=== PATIENT | male | born 1955 | race Caucasian/White ===

== ENCOUNTER 2019-05-23 12:47 | Outpatient (CLI) | payer BC, SELFPAY ==
[2019-05-23 15:21] LABS: Complement C3 145 mg/dL (88-165)
[2019-05-23 15:24] LABS: CRP 0.5 mg/dL (<1.0)
[2019-05-23 15:30] LABS: Erythrocyte Sedimentation Rate 12 mm/hr (0-20)
[2019-05-23 16:07] LABS: Rheumatoid Factor < 8.6 IU/ML (<12)
[2019-05-25 11:19] LABS: Angiotensin Converting Enzyme 9 U/L (9-67)
[2019-05-26 02:34] LABS: Hex Phase Conf Chg Test Yes; Lupus dRVVT 1:1 Mix Interpreta Not Indicated; Lupus dRVVT Screen 40 sec (<=45); LupusdRVVT 1:1Mix Int Chg Test Yes; PTT-LA Screen 38 sec (<=40)
[2019-05-26 10:46] LABS: Anti Cyclic Citrullinated Pept <16 Units (<20)
[2019-05-28 18:57] LABS: SM Antibody <1.0; SM/RNP Antibody <1.0
[2019-05-28 19:07] LABS: SS-A <1.0; SS-B <1.0
== END 2019-05-23 12:48 | disposition home or self-care (01) ==
LOC: ANHLAB 12:50
PROVIDERS: PCP Family Medicine; Visit Provider Internal Medicine
DX: M19.90 Unspecified osteoarthritis, unspecified site (principal); R76.8 Other specified abnormal immunological findings in serum
CPT/HCPCS: 36415; 82164; 85598; 85613; 85652; 85730; 86140; 86160; 86200; 86225; 86235; 86430

== ENCOUNTER 2019-06-26 07:27 | Outpatient (CLI) | payer BC, SELFPAY ==
--- NOTE | ~2019-06-26 | CT_ITS ---
EXAMINATION: CT abdomen pelvis w con DATE: 06/26/2019 08:18 INDICATION: Malignant neoplasm of the ascending colon TECHNIQUE: Computed tomography (CT) of the abdomen and pelvis was performed with 100 mL Omnipaque-350 intravenous contrast. Automated exposure control and iterative reconstruction technique were employe d. The dose-length product was 620.20 mGy-cm. COMPARISON: 11/28/2018 and 09/12/2015 FINDINGS: Mild atelectasis/scarring at the bilateral lung bases. Couple unchanged 4 mm nodules in the left and right lower lobes are unchanged since 09/12/2015 consistent with old granulomatous disease. Heart size is normal. No pericardial or pleural effusion. Liver, gallbladder, spleen, pancreas, bilateral adren al glands and kidneys are normal. Postoperative change of prior right hemicolectomy with ileocolic an astomosis. Bowels are otherwise unremarkable. Small bilateral fat-containing inguinal hernias with ch jacqueline of likely hernia mesh repair on the left. Bladder is normal. No free intraperitoneal gas or flui d. No pathologically enlarged abdominal or pelvic lymphadenopathy. Mild lumbar dextrocurvature with m oderate spondylosis partially lumbarized S1 segment. IMPRESSION: 1. No evident recurrent or metastatic disease. Reviewed, dictated and finalized at location A. 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
== END 2019-06-26 07:28 | disposition home or self-care (01) ==
LOC: ANHIMG 07:30
PROVIDERS: PCP Family Medicine; Visit Provider Internal Medicine Hematology & Oncology
DX: C18.2 Malignant neoplasm of ascending colon (principal)
CPT/HCPCS: 74177; Q9967

== ENCOUNTER 2019-07-12 01:26 | Day surgery (SDC) | payer BC, SELFPAY ==
[2019-07-06 14:42] VITALS: BMI 27.1
[2019-07-12 06:14] VITALS: BP 133/87; PULSE 83; RESP 16; TEMP 36.3; O2SAT 98; BMI 26.2
[2019-07-12] MEDS: LACTATED RINGERS 1,000 ML 150 ML IV CONT (06:37)
--- NOTE | 2019-07-12 07:11 | P.PNAN_ITS ---
Anes - Initial Pre Proc Eval Procedure: Operation Date: 07/12/19 07:30 Proposed Procedures p Screening Colonoscopy - Shad Carrasquillo MD Date/Time: 07/12/19 07:11 Surgeon: Shad Carrasquillo MD Pre Op Diagnosis: Neoplasm Screening and Hx of Colon CA Patient Data Age: 63 Gender: M Height: 6 ft Weight: 87.6 kg Last Vital Signs Temp 97.4 F L 07/12/19 06:14 Pulse 83 07/12/19 06:14 Resp 16 07/12/19 06:14 BP 133/87 07/12/19 06:14 Pulse Ox 98 07/12/19 06:14 Allergies Allergy/AdvReac Type Severity Reaction Status Date / Time No Known Allergies Allergy Unverified 07/12/19 06:23 Home Medications Medication Instructions Recorded Confirmed Type ascorbate calcium (vitamin C) 500 500 mg PO DAILY 05/16/19 07/06/19 History mg tablet lisinopril 5 mg PO DAILY 07/06/19 07/06/19 History Patient hx anesthesia problems: none Family hx anesthesia problems: none COUNT INCLUDES THE [facility] Past Medical History Medical History (Updated 07/12/19 @ 07:11 by Easton Reece MD) Allergies JONATHAN positive Colon cancer had radiation and chemo Inflammatory arthritis Peripheral neuropathy Surgical History Surgical History H/O hernia repair History of colon surgery Social History Social History Smoking status: Never smoker Alcohol intake: never Anes - Eval Final PreProcedure Day of Procedure 07/12/19 07:11 Patient weight: normal Heart: regular rate and rhythm Lungs: clear to auscultation Airway: Mallampati scale class II Neurological: alert and oriented Last oral intake: >/= 8 hours ASA classification: III Emergent: no Anesthetic plan: proceed Anesthesia type and monitoring: general GIVS and standard monitoring Informed Consent: The patient's anesthetic plan and its attendant risks and benefits were discussed with the patient/family/POA. Questions were solicited and answers provided to the satisfaction of the patient/family/POA.
--- NOTE | 2019-07-12 07:34 | P.CONGI_ITS ---
Assessment and Plan Additional Plan This is a 63-year-old white male patient seen in evaluation at the request of Dr. Gee Arcos, also followed by Dr Weiss. Patient was found to have a cancer of the cecum requiring surgical resection 1 year ago. His current weight appetite bowel movements are normal. He denies abdominal pain. His bowel habits are normal. He has not lost weight. After surgical resection he did undergo chemotherapy and radiation therapy. Family history is significant his sister and brother both have had colon polyps. His son had kidney cancer resected age two current medications include lisinopril. No stated drug allergies. Physical exam reveals patient to be alert. Vital signs stable. HEENT exam unremarkable. Lungs are clear to auscultation and percussion. Heart is without murmur or extra sounds. Abdominal exam bowel sounds are present soft nontender with no hepatosplenomegaly. Digital external rectal exam is normal. Impression 1. Personal history of colon cancer. Status post right hemicolectomy. 2. Family history of colon polyps. Plan is for surveillance colonoscopy now and at intervals in the future. GI Consult Note Consult date/time: 07/12/19 07:34 HPI: Conor Olea is a 63 year old male [facility] Past Medical History Medical History (Updated 07/12/19 @ 07:11 by Easton Reece MD) Allergies JONATHAN positive Colon cancer had radiation and chemo Inflammatory arthritis Peripheral neuropathy Surgical History Surgical History H/O hernia repair History of colon surgery Social History Social History Smoking status: Never smoker Alcohol intake: never Meds Home Medications and Allergies Home Medications Medication Instructions Recorded Confirmed Type ascorbate calcium (vitamin C) 500 500 mg PO DAILY 05/16/19 07/06/19 History mg tablet lisinopril 5 mg PO DAILY 07/06/19 07/06/19 History Allergies Allergy/AdvReac Type Severity Reaction Status Date / Time No Known Allergies Allergy Unverified 07/12/19 06:23 Vital Signs Vital Signs - 24 hr 07/12/19 06:14 Temperature 36.3 C L Pulse Rate 83 Respiratory Rate 16 Blood Pressure 133/87 Pulse Oximetry 98
[2019-07-12 07:52] VITALS: BP 119/72; PULSE 84; RESP 17; O2SAT 98
[2019-07-12 08:02] VITALS: BP 123/81; PULSE 71; RESP 17; O2SAT 95
[2019-07-12 08:12] VITALS: BP 141/100; PULSE 71; RESP 17; O2SAT 97
== END 2019-07-12 08:45 | disposition home or self-care (01) ==
PROVIDERS: PCP Family Medicine; Visit Provider Internal Medicine Gastroenterology
PROC: 0DJD8ZZ Inspection of Lower Intestinal Tract, Via Natural or Artificial Opening Endoscopic (ICD-10-PCS; CPT 45378; principal; 2019-07-12 07:30)
DX: Z12.11 Encounter for screening for malignant neoplasm of colon (principal); K64.8 Other hemorrhoids; Z85.038 Personal history of other malignant neoplasm of large intestine; Z90.49 Acquired absence of other specified parts of digestive tract; Z83.71 Family history of colonic polyps; Z92.21 Personal history of antineoplastic chemotherapy; Z92.3 Personal history of irradiation; G62.9 Polyneuropathy, unspecified
CPT/HCPCS: G0105; J2704; J7120

== ENCOUNTER 2020-02-01 08:22 | Outpatient (CLI) | payer BC, SELFPAY ==
--- NOTE | 2020-02-01 08:24 | ECG_ITS ---
Measurements Intervals [place] Rate: 86 P: 60 AL: 195 QRS: -26 QRSD: 111 T: 39 QT: 349 QTc: 420 Interpretive Statements SINUS RHYTHM INTRAVENTRICULAR CONDUCTION DELAY BORDERLINE R WAVE PROGRESSION, ANTERIOR LEADS BORDERLINE T WAVE ABNORMALITY- LATERAL LEADS BASELINE ARTIFACT- I, II, III, AVR, AVL, AVF BORDERLINE ECG Electronically Signed On 02-01-2020 9:11:15 CDT by Mihir Han D.O.
== END 2020-02-01 08:23 | disposition home or self-care (01) ==
LOC: ANHSURGERY 08:24
PROVIDERS: PCP Family Medicine; Visit Provider Surgery
DX: Z01.818 Encounter for other preprocedural examination (principal); I10 Essential (primary) hypertension; I45.9 Conduction disorder, unspecified; R94.31 Abnormal electrocardiogram [ECG] [EKG]
CPT/HCPCS: 93005

== ENCOUNTER 2020-02-06 00:18 | Outpatient (CLI) | payer BC, SELFPAY ==
[2020-02-06 19:01] LABS: SARS-CoV-2 RNA PCR Negative
== END 2020-02-06 00:19 | disposition home or self-care (01) ==
LOC: ANHCOVIDDT 00:18
PROVIDERS: PCP Family Medicine; Visit Provider Surgery
DX: Z01.812 Encounter for preprocedural laboratory examination (principal); Z20.828 Contact with and (suspected) exposure to other viral communicable diseases
CPT/HCPCS: 87635; C9803; U0003

== ENCOUNTER 2020-02-08 01:03 | Day surgery (SDC) | payer BC, SELFPAY ==
[2020-01-31 09:24] VITALS: BMI 25.7
[2020-02-08 08:30] VITALS: BMI 24.3
[2020-02-08 08:56] VITALS: BP 154/86; PULSE 84; RESP 20; TEMP 36.5; O2SAT 98
[2020-02-08] MEDS: LACTATED RINGERS 1,000 ML 30 ML IV CONT (09:19)
--- NOTE | 2020-02-08 09:54 | PM.IMHP ---
H&P: HPI History of Present Illness Date/Time: 02/08/20 09:54 Chief complaint: Colon Cancer Narrative: Conor Olea is a 64 year old male presenting for RIJ VAD removal. Pt had port place in 05/14 for metastatic colon cancer. Pt has completed chemotx at this time and recent f/u c oncology clears him for VAD removal. Pt reports he has been regularly having port flushed and has not noted any issues. Review of Systems Constitutional: Constitutional: Denies anorexia, Denies chills, Denies fatigue, Denies headache(s), Denies malaise, Denies poor appetite, Denies weight gain and Denies weight loss Eyes: Eyes: Reports no additional eye complaints and Denies change in vision ENT: Denies headache(s), Denies hearing loss and Denies sore throat Cardiovascular: Cardiovascular: Reports no additional cardiovascular complaints, Denies chest pain, Denies palpitations and Denies dyspnea Respiratory: Respiratory: Reports no additional respiratory complaints, Denies cough and Denies dyspnea Gastrointestinal: Gastrointestinal: Reports no additional gastrointestinal complaints, Denies abdominal pain, Denies change in stool character, Denies constipation, Denies diarrhea, Denies nausea and Denies vomiting Genitourinary: Genitourinary: Reports no additional male genitourinary complaints, Denies dysuria, Denies urinary frequency and Denies urinary urgency Musculoskeletal: Musculoskeletal: Reports no additional musculoskeletal complaints Integumentary/Breasts: Skin/Breast: Reports system reviewed and no additional complaints, except as docu, Denies pruritus, Denies lesions and Denies wounds Neurologic: Reports system reviewed and no additional complaints, except as documented, Denies confusion and Denies headache(s) Psychiatric: Psychiatric: Reports no additional psychiatric complaints and Denies confusion Endocrine: Endocrine: Reports no additional endocrine complaints, Denies fatigue and Denies palpitations Hematologic/Lymphatic: Hematologic/Lymphatic: Reports no additional hematologic/lymphatic complaints Allergic/Immunologic: Allergic/Immunologic: Reports no additional allergic/immunologic complaints PMFSH Past Medical History Medical History Allergies JONATHAN positive Colon cancer had radiation and chemo Inflammatory arthritis Lupus (systemic lupus erythematosus) Neuropathy due to chemotherapeutic drug Peripheral neuropathy Seasonal allergic rhinitis Surgical History Surgical History H/O hernia repair History of colon surgery Family History Family History Sibling Family history of premature coronary heart disease Father Cerebrovascular accident Other Family history of malignant neoplasm of kidney Social History Social History Smoking status: Never smoker Alcohol intake: never Spiritual care concerns: No Meds Home Medications and Allergies Home Medications Medication Instructions Recorded Confirmed Type ascorbate calcium (vitamin C) 500 500 mg PO DAILY 05/16/19 02/08/20 History mg tablet lisinopril 10 mg tablet 10 mg PO DAILY #30 tablet 12/11/19 02/08/20 Rx hydrochlorothiazide 12.5 mg tablet 12.5 mg PO DAILY #30 tablet 01/12/20 02/08/20 Rx duloxetine [Cymbalta] 60 mg PO HS 01/31/20 02/08/20 History Allergies Allergy/AdvReac Type Severity Reaction Status Date / Time No Known Allergies Allergy Verified 02/08/20 09:08 Vital Signs Vital Signs - 24 hr 02/08/20 08:56 Temperature 36.5 C Pulse Rate 84 Respiratory Rate 20 Blood Pressure 154/86 H Pulse Oximetry 98 Exam Const: General: cooperative, comfortable, no acute distress and well developed Nutritional Appearance: average body habitus Orientation/consciousness: patient oriented x3 and No confusion HENMT: Head: normal to
--- NOTE | 2020-02-08 10:01 | WPDHPUPDATE1 ---
History and Physical Update Update Date/Time: 02/08/20 10:01 History and Physical has been reviewed, including an updated exam of the patient. There are NO changes in the patient's condition. Risks, benefits, and alternatives have been discussed and questions answered. Patient agrees to proceed with procedure.
--- NOTE | 2020-02-08 10:41 | WPDANESEPPF ---
Anes - Initial Pre Proc Eval Procedure: Operation Date: 02/08/20 10:00 Proposed Procedures p Removal Maura Cath - Clementine Weir MD Date/Time: 02/08/20 10:41 Surgeon: Clementine Weir MD Pre Op Diagnosis: Colon Cancer Patient Data Age: 64 Gender: M Height: 6 ft Weight: 81.3 kg Last Vital Signs Temp 97.7 F 02/08/20 08:56 Pulse 84 02/08/20 08:56 Resp 20 02/08/20 08:56 BP 154/86 H 02/08/20 08:56 Pulse Ox 98 02/08/20 08:56 Allergies Allergy/AdvReac Type Severity Reaction Status Date / Time No Known Allergies Allergy Verified 02/08/20 09:08 Home Medications Medication Instructions Recorded Confirmed Type ascorbate calcium (vitamin C) 500 500 mg PO DAILY 05/16/19 02/08/20 History mg tablet lisinopril 10 mg tablet 10 mg PO DAILY #30 tablet 12/11/19 02/08/20 Rx hydrochlorothiazide 12.5 mg tablet 12.5 mg PO DAILY #30 tablet 01/12/20 02/08/20 Rx duloxetine [Cymbalta] 60 mg PO HS 01/31/20 02/08/20 History Patient hx anesthesia problems: none Family hx anesthesia problems: none PMFSH Past Medical History Medical History (Updated 02/08/20 @ 09:58 by Clementine Weir MD) Allergies JONATHAN positive Colon cancer had radiation and chemo Inflammatory arthritis Lupus (systemic lupus erythematosus) Neuropathy due to chemotherapeutic drug Peripheral neuropathy Seasonal allergic rhinitis Surgical History Surgical History H/O hernia repair History of colon surgery Family History Family History Sibling Family history of premature coronary heart disease Father Cerebrovascular accident Other Family history of malignant neoplasm of kidney Social History Social History Smoking status: Never smoker Alcohol intake: never Spiritual care concerns: No Anes - Eval Final PreProcedure Day of Procedure 02/08/20 10:41 Patient weight: normal Heart: regular rate and rhythm Lungs: clear to auscultation Airway: Mallampati scale class II Neurological: alert and oriented ASA classification: III Emergent: no Anesthetic plan: proceed Anesthesia type and monitoring: general GIVS and standard monitoring Informed Consent: The patient's anesthetic plan and its attendant risks and benefits were discussed with the patient/family/POA. Questions were solicited and answers provided to the satisfaction of the patient/family/POA.
[2020-02-08] MEDS: ceFAZolin 2 GM/D5W 50 ML 2 GM/50 ML BAG IVPB (11:20)
--- NOTE | 2020-02-08 11:27 | SUR.PREOP ---
1100; PT AWARE DR BECERRA IS ABOUT AN HOUR BEHIND SCHEDULE
[2020-02-08] MEDS: BUPIVACAINE/EPINEPHRINE 0.5% 10 ML VIAL INFILTRATE (11:35)
[2020-02-08 11:55] VITALS: BP 144/77; PULSE 90; RESP 14; O2SAT 100
--- NOTE | 2020-02-08 12:04 | P.OP_ITS ---
Procedure Note - Detailed Date of procedure: 02/08/20 Pre-op diagnosis: Colon Cancer Post-op diagnosis: same Procedure performed: Removal right chest venous access device Description of procedure: The patient was taken to the operating room placed in the supine position. After adequate induction of MAC anesthesia, the patient was prepped and draped in the normal sterile fashion. A time-out was then done to verify the patient's identity, as well as the procedure being performed. I began by localizing the previous incision line in the right chest and around the port itself. Once this was done, I made an incision through the old incision to the level of the port. I then bluntly dissected around the port, and located the 2 sutures holding the port in place. I then cut the 2 sutures and removed the port from the pocket. I was then able to remove the port and catheter in full. The catheter was noted in the right internal jugular vein. I then held pressure at the level of the right internal jugular vein for approximately 5 mi nutes. Hemostasis was noted after pressure was held. I then localized the pocket further and closed the subcutaneous tissue with 3 0 Vicryl suture. I then closed the skin with 4 O Monocryl subcuticular suture. Dermabond was then placed on the wound. The patient tolerated the procedure well, was alert and awake in the operating room postoperatively, and will be transferred to the recovery in stable condition. Implants: none Anesthesia: MAC and local Surgeon: Clementine Weir MD Estimated blood loss (mL): 5 Drains: No Packing: No Pathology: none sent Complications: No immediate complications Condition: stable Disposition: PACU Findings: right-sided VAD
[2020-02-08 12:25] VITALS: BP 151/80; PULSE 83; RESP 16; O2SAT 96
[2020-02-08 12:55] VITALS: BP 165/98; PULSE 78; RESP 16
== END 2020-02-08 13:05 | disposition home or self-care (01) ==
PROVIDERS: PCP Family Medicine; Visit Provider Surgery
PROC: (CPT 36589; principal; 2020-02-08 10:00)
DX: Z45.2 Encounter for adjustment and management of vascular access device (principal); Z85.038 Personal history of other malignant neoplasm of large intestine; Z92.21 Personal history of antineoplastic chemotherapy; Z92.3 Personal history of irradiation; M32.9 Systemic lupus erythematosus, unspecified; G62.9 Polyneuropathy, unspecified
CPT/HCPCS: 36590; J0690; J2250; J3010; J7120

== ENCOUNTER 2020-05-24 09:17 | Outpatient (CLI) | payer BC, SELFPAY ==
--- NOTE | ~2020-05-24 | CT_ITS ---
EXAMINATION: CT abdomen pelvis w con DATE: 05/24/2020 09:51 INDICATION: Malignant neoplasm of the ascending colon TECHNIQUE: Computed tomography (CT) of the abdomen and pelvis was performed with 100 mL Omnipaque-350 intravenous contrast. Automated exposure control and iterative reconstruction technique were employe d. The dose-length product was 525.84 mGy-cm. COMPARISON: 06/26/2019 FINDINGS: Mild bibasilar atelectasis. Heart size is normal. No pericardial or pleural effusion. Small sliding-t ype hiatal hernia. Liver, gallbladder, spleen, pancreas, right kidney and bilateral adrenal glands ar e normal. There are 4 nonobstructing stones at the left kidney the largest at the lower pole measurin g approximately 2-3 mm. Bladder is normal. Small bilateral fat-containing inguinal hernias with batres e of prior left inguinal hernia repair. Postoperative change of prior right hemicolectomy with ileoco lic anastomosis in the right abdomen. No bowel obstruction. No free intraperitoneal gas or fluid. No pathologically enlarged abdominal or pelvic lymphadenopathy. Mild lumbar dextroscoliosis. Mild to mod erate lumbar and lower thoracic spondylosis. No suspicious lytic or blastic bone lesions. IMPRESSION: 1. Change of prior right hemicolectomy with ileocolic anastomosis for reported malignant neoplasm of the ascending colon. No evident recurrent or metastatic disease. 2. Small sliding-type hiatal hernia. 3. Small bilateral fat-containing inguinal hernias with change of prior left inguinal hernia repair. Reviewed, dictated and finalized at location B. 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 Change of prior right hemicolectomy with ileocolic anastomosis for reported malignant neoplasm of the ascending colon. No evident recurrent or metastatic disease. 2. Small sliding-type hiatal hernia. 3. Small bilateral fat-containing inguinal hernias with change of prior left in guinal hernia repair.
== END 2020-05-24 09:18 | disposition home or self-care (01) ==
PROVIDERS: PCP Family Medicine; Visit Provider Internal Medicine Hematology & Oncology
DX: C18.2 Malignant neoplasm of ascending colon (principal); Z90.49 Acquired absence of other specified parts of digestive tract; K44.9 Diaphragmatic hernia without obstruction or gangrene; K40.20 Bilateral inguinal hernia, without obstruction or gangrene, not specified as recurrent
CPT/HCPCS: 74177; Q9967

== ENCOUNTER 2021-05-08 08:06 | Outpatient (CLI) | payer MEDICARE, SELFPAY ==
--- NOTE | ~2021-05-08 | CT_ITS ---
EXAMINATION: CT abdomen pelvis w con DATE: 05/08/2021 08:37 INDICATION: Malignant neoplasm of ascending colon. TECHNIQUE: Computed tomography (CT) of the abdomen and pelvis was performed with 100 mL Omnipaque 350 intravenous contrast. Automated exposure control and iterative reconstruction technique were employe d. The dose-length product was 627.86 mGy-cm. COMPARISON: CT abdomen and pelvis 05/24/2020 FINDINGS: The visualized portions of the lung bases demonstrate mild atelectasis. No pleural effusion . The heart size is normal. No pericardial effusion. The liver, gallbladder, spleen, pancreas, adrena l glands, and right kidney are normal. There are two 1 mm stones in left kidney. There is a right ing uinal hernia containing fat. There are changes of left inguinal hernia repair. There is prominent fat in left inguinal canal that may be the normal postoperative appearance or a recurrent hernia. There are changes of right hemicolectomy. There are no pathologically enlarged lymph nodes. There is no chavo e intraperitoneal fluid. There is severe lumbar spondylosis. There is mild chronic anterior wedging o f lower thoracic vertebral bodies. IMPRESSION: 1. No evidence of metastatic disease. Reviewed, dictated and finalized at location B. 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
[2021-05-08 08:31] LABS: Estimated Glomerular Filt Rate > 60
== END 2021-05-08 08:07 | disposition home or self-care (01) ==
PROVIDERS: PCP Family Medicine; Visit Provider Internal Medicine Hematology & Oncology
DX: C18.2 Malignant neoplasm of ascending colon (principal)
CPT/HCPCS: 74177; Q9967

== ENCOUNTER 2021-09-02 11:48 | Outpatient (CLI) | payer MEDICARE, SELFPAY ==
[2021-09-02 15:12] LABS: Prostate Specific Antigen 1.4 ng/mL (< OR = 4.0)
[2021-09-02 15:39] LABS: MALB Creatinine Ratio 12.5 mg/g (0-30); Microalbumin Urine Random 37.5 mg/L (0-16.7)
== END 2021-09-02 11:49 | disposition home or self-care (01) ==
LOC: ANHLAB 11:49
PROVIDERS: PCP Family Medicine; Visit Provider Family Medicine
DX: Z12.5 Encounter for screening for malignant neoplasm of prostate (principal); E11.9 Type 2 diabetes mellitus without complications
CPT/HCPCS: 36415; 82043; 84153; G0103

== ENCOUNTER 2022-05-26 06:38 | Outpatient (CLI) | payer MEDICARE, SELFPAY ==
--- NOTE | ~2022-05-26 | CT_ITS ---
EXAMINATION: CT abdomen pelvis w con INDICATION: Malignant neoplasm of the ascending colon TECHNIQUE: Computed tomographic images of the abdomen and pelvis were obtained after the administrati on of 100 cc of Omnipaque 350 intravenous contrast. The dose-length product (DLP) was 492.05 mGy-cm. Automated exposure control and iterative reconstruction technique were employed. COMPARISON: 05/08/2021 FINDINGS: Minimal dependent atelectasis is present in the lung bases. The heart size is normal. The l iver, spleen, pancreas, gallbladder, and adrenal glands are normal. The kidneys are unremarkable. No pathologically enlarged abdominal or pelvic lymph nodes are identified. There is no free intraperiton eal gas or evidence of bowel obstruction. Colonic diverticulosis is present without evidence of diver ticulitis. There are changes of right hemicolectomy. There is a right inguinal hernia containing fat. There is severe lower lumbar spondylosis. IMPRESSION: 1. Changes of right hemicolectomy without evidence of recurrent or metastatic disease. Reviewed, dictated and finalized at location L. FOLDER IMPRESSION: 1. Changes of right hemicolectomy without evidence of recurrent or metastatic d isease.
== END 2022-05-26 06:39 | disposition home or self-care (01) ==
PROVIDERS: PCP Family Medicine; Visit Provider Internal Medicine Hematology & Oncology
DX: C18.2 Malignant neoplasm of ascending colon (principal)
CPT/HCPCS: 74177; Q9967

== ENCOUNTER 2022-06-15 09:23 | Day surgery (SDC) | payer MEDICARE, SELFPAY ==
[2022-05-28 09:56] VITALS: BMI 26.3
[2022-06-02 12:09] VITALS: BMI 25.7
--- NOTE | 2022-06-15 07:09 | P.PNAN_ITS ---
Anes - Initial Pre Proc Eval Procedure: Operation Date: 06/15/22 11:30 Proposed Procedures p Diagnostic Colonoscopy - Shad Carrasquillo MD Date/Time: 06/15/22 07:09 Surgeon: Shad Carrasquillo MD Pre Op Diagnosis: History of Colon Cancer Patient Data Age: 66 Gender: M Height: 1.83 m Weight: 86 kg Allergies Allergy/AdvReac Type Severity Reaction Status Date / Time No Known Allergies Allergy Verified 06/02/22 12:08 Home Medications Medication Instructions Recorded Confirmed Type amlodipine 5 mg tablet 5 mg PO DAILY #90 tabs 03/09/22 06/15/22 Rx lisinopril 10 mg tablet 10 mg PO DAILY #90 tabs 05/05/22 06/15/22 Rx metformin 500 mg tablet,extended 1,000 mg PO DAILY #180 tabs 05/05/22 06/15/22 Rx release 24 hr sodium,potassium,mag sulfates 17.5 See Rx Instructions PO .COMPLEX 05/28/22 06/15/22 Rx gram-3.13 gram-1.6 gram oral soln #354 mL (Suprep Bowel Prep Kit) Patient hx anesthesia problems: none Family hx anesthesia problems: none Results Review: All pre-operative results and documents have been reviewed as part of the pre- operative evaluation. [facility] Past Medical History Medical History (Updated 06/15/22 @ 07:11 by Humble Campos DO) Allergies JONATHAN positive BMI 25.0-25.9,adult BMI 26.0-26.9,adult Colon cancer had radiation and chemo Essential (primary) hypertension Inflammatory arthritis Lupus (systemic lupus erythematosus) Neuropathy due to chemotherapeutic drug Peripheral neuropathy Seasonal allergic rhinitis Uncontrolled type 2 diabetes mellitus with hyperglycemia Surgical History Surgical History H/O hernia repair History of colon surgery Family History Family History Sibling Family history of premature coronary heart disease Father Cerebrovascular accident Mother No problems noted. Other Family history of malignant neoplasm of kidney Social History Social History Smoking status: Never smoker Alcohol intake: current Substance use: never Substance use type: does not use Living arrangements: alone Gender identity (if verbalized by the patient): Male Spiritual care concerns: No Anes - Eval Final PreProcedure Day of Procedure 06/15/22 07:09 Patient weight: overweight Heart: regular rate and rhythm Lungs: clear to auscultation Airway: Mallampati scale class II Neurological: alert and oriented Last oral intake: >/= 8 hours ASA classification: III Emergent: no Anesthetic plan: proceed Anesthesia type and monitoring: general GIVS and standard monitoring Results Review: All pre-operative results and documents have been reviewed as part of the pre- operative evaluation. Informed Consent: The patient's anesthetic plan and its attendant risks and benefits were discussed with the patient/family/POA. Questions were solicited and answers provided to the satisfaction of the patient/family/POA.
[2022-06-15 10:00] VITALS: BP 130/81; PULSE 98; RESP 20; TEMP 36.9; O2SAT 99
[2022-06-15] MEDS: LACTATED RINGERS 1,000 ML 150 ML IV CONT (10:19)
[2022-06-15 10:21] LABS: Glucose Point of Care 201 mg/dl (65-105)
--- NOTE | 2022-06-15 10:35 | PM.HPGS ---
History of Present Illness History of Present Illness Consent: Risks, benefits, and alternatives have been discussed and questions answered. Patient agrees to proceed with procedure. Chief complaint: History of Colon Cancer Narrative: Conor Olea is a 66 year old male Presents for surveillance colonoscopy. Patient's current weight appetite and bowel movements are normal. He denies abdominal pain. He has had no bleeding. Patient has a history of colon cancer resected 2018. By Dr. Shook. Patient states he has done well since that time. He returns today for surveillance colonoscopy. Previous colonoscopies were performed by Dr. Paz. Review of Systems Review of Systems: Review of systems noncontributory. [facility] Past Medical History Medical History (Updated 06/15/22 @ 07:11 by Humble Campos DO) Allergies JONATHAN positive BMI 25.0-25.9,adult BMI 26.0-26.9,adult Colon cancer had radiation and chemo Essential (primary) hypertension Inflammatory arthritis Lupus (systemic lupus erythematosus) Neuropathy due to chemotherapeutic drug Peripheral neuropathy Seasonal allergic rhinitis Uncontrolled type 2 diabetes mellitus with hyperglycemia Surgical History Surgical History H/O hernia repair History of colon surgery Family History Family History Sibling Family history of premature coronary heart disease Father Cerebrovascular accident Mother No problems noted. Other Family history of malignant neoplasm of kidney Social History Social History Smoking status: Never smoker Alcohol intake: current Substance use: never Substance use type: does not use Living arrangements: alone Gender identity (if verbalized by the patient): Male Spiritual care concerns: No Meds Home Medications and Allergies Home Medications Medication Instructions Recorded Confirmed Type amlodipine 5 mg tablet 5 mg PO DAILY #90 tabs 03/09/22 06/15/22 Rx lisinopril 10 mg tablet 10 mg PO DAILY #90 tabs 05/05/22 06/15/22 Rx metformin 500 mg tablet,extended 1,000 mg PO DAILY #180 tabs 05/05/22 06/15/22 Rx release 24 hr sodium,potassium,mag sulfates 17.5 See Rx Instructions PO .COMPLEX 05/28/22 06/15/22 Rx gram-3.13 gram-1.6 gram oral soln #354 mL (Suprep Bowel Prep Kit) Allergies Allergy/AdvReac Type Severity Reaction Status Date / Time No Known Allergies Allergy Verified 06/02/22 12:08 Vital Signs Vital Signs - 24 hr 06/15/22 10:00 Temperature 98.5 F Pulse Rate 98 Respiratory Rate 20 Blood Pressure 130/81 Pulse Oximetry 99 Oxygen Delivery Room Air Exam Narrative: Physical exam reveals patient to be alert. Vital signs stable. HEENT exam is unremarkable. Patient is anicteric. Lungs are clear to auscultation and percussion. Heart is without murmur or extra sounds. Abdomen bowel sounds present soft nontender with no organomegaly. Digital external rectal exam is normal per Assessment and Plan Assessment and plan (1) Colon cancer: Code(s): C18.9 - Malignant neoplasm of colon, unspecified Status: Acute Assessment and Plan: patient has a history of colon cancer resected 2018. Patient underwent radiation therapy and chemotherapy. Stage of colon cancer is uncertain at this time. Further recommendations may be given after surveillance endoscopy. Follow-up typically at 3 year intervals is advised.
[2022-06-15] MEDS: SIMETHICONE ORAL SUSPENSION 20 MG/0.3 ML 30 ML BOTTLE 0.6 ML IRRIGATION (11:22)
[2022-06-15 11:30] VITALS: BP 92/59; PULSE 75; RESP 16; O2SAT 92
[2022-06-15 11:40] VITALS: BP 94/70; PULSE 78; RESP 18; O2SAT 98
[2022-06-15 11:50] VITALS: BP 123/81; PULSE 69; RESP 18; O2SAT 96
--- NOTE | 2022-06-15 11:58 | SUR.PHASEII ---
PT AWAKE AND ALERT. DENIES PAIN. DRINKING WATER. STATES READY TO GO HOME.
--- NOTE | 2022-06-15 12:44 | WPDANESPN ---
Anes - Prog Note Post-Op Date/Time: 06/15/22 12:44 Cardiovascular status: normal Respiratory status: normal Airway patency: baseline Mental status: baseline Post-Op hydration status: normal Vital Signs: Last Vital Signs Temp 36.9 C 06/15/22 10:00 Pulse 69 06/15/22 11:50 Resp 18 06/15/22 11:50 BP 123/81 06/15/22 11:50 Pulse Ox 96 06/15/22 11:50 O2 Del Method Room Air 06/15/22 11:50 Pain Score (VAS): 0 I/O: Intake & Output 06/14/22 06/15/22 06/15/22 23:59 07:59 15:59 Intake Total 400 Balance 400 06/15/22 10:17 POC Capillary Glucose 201 H Post-procedural complaints: none Patient Feedback: Patient satisfied with anesthetic care. Other Findings: Patient vital signs back to baseline. Patient denies nausea and vomiting. Patient's pain under control. Patient OK for discharge.
== END 2022-06-15 12:15 | disposition home or self-care (01) ==
PROVIDERS: PCP Family Medicine; Visit Provider Internal Medicine Gastroenterology
PROC: 0DJD8ZZ Inspection of Lower Intestinal Tract, Via Natural or Artificial Opening Endoscopic (ICD-10-PCS; CPT 45378; principal; 2022-06-15 11:30)
DX: Z85.038 Personal history of other malignant neoplasm of large intestine (principal)
CPT/HCPCS: 45378

== ENCOUNTER 2022-11-09 09:36 | Outpatient (CLI) | payer MEDICARE, SELFPAY ==
[2022-11-09 09:49] LABS: Hemoglobin 14.3 g/dL (14.0-18.0); Mean Corpuscular HGB Conc 33.3 g/dl (32-36); Mean Corpuscular Hemoglobin 28.8 pg (26-34); Mean Corpuscular Volume 86.7 fl (80-100); Mean Platelet Volume 8.7 fl (7.4-10.4); Platelet Count Result 293 k/mm3 (150-375); Red Blood Count 4.96 M/mm3 (4.6-6.20); Red Cell Distribution Width 12.6 % (11.5-14.5); White Blood Count 6.7 K/mm3 (4.5-10.0)
[2022-11-09 12:29] LABS: Microalbumin Urine Random 57.2 mg/L (0-16.7)
[2022-11-09 12:32] LABS: Anion Gap 5 mmol/L (8-16); Bilirubin,Total 0.7 mg/dL (0.2-1.3); Blood Urea Nitrogen 17 mg/dL (9-20); Calcium 9.2 mg/dL (8.4-10.2); Carbon Dioxide 28 mmol/L (22-30); Chloride 103 mmol/L (98-107); Estimated Glomerular Filt Rate > 60; Glucose 165 mg/dL (65-110); Potassium 4.1 mmol/L (3.4-5.0); Sodium 136 mmol/L (137-145)
[2022-11-09 12:33] LABS: Alanine Aminotransferase 25 U/L (6-50); Albumin Level 4.5 g/dL (3.5-5.1); Alkaline Phosphatase 81 U/L (38-126); Aspartate Amino Transferase 27 U/L (17-59); Cholesterol 218 mg/dL (0-200); HDL Direct 39 mg/dL; Triglycerides 120 mg/dL (<150)
[2022-11-09 12:39] LABS: Free T4 Free Thyroxine 1.03 ng/mL (0.78-2.19)
[2022-11-09 12:42] LABS: Creatinine Urine 392.3 mg/dL; MALB Creatinine Ratio 14.6 mg/g (0-30)
[2022-11-09 12:44] LABS: LDL Cholesterol Direct 137 mg/dL
[2022-11-09 12:50] LABS: Erythrocyte Sedimentation Rate 14 mm/hr (0-20)
== END 2022-11-09 09:37 | disposition home or self-care (01) ==
LOC: ANHLAB 09:38
PROVIDERS: PCP Family Medicine; Visit Provider Family Medicine
DX: M19.90 Unspecified osteoarthritis, unspecified site (principal); I10 Essential (primary) hypertension; E03.9 Hypothyroidism, unspecified; E11.65 Type 2 diabetes mellitus with hyperglycemia; G62.0 Drug-induced polyneuropathy; T45.1X5A Adverse effect of antineoplastic and immunosuppressive drugs, initial encounter; Z13.220 Encounter for screening for lipoid disorders; Z12.5 Encounter for screening for malignant neoplasm of prostate
CPT/HCPCS: 36415; 80048; 80061; 80076; 82043; 82607; 83036; 84153; 84439; 84443; 85027; 85652; G0103

== ENCOUNTER 2023-05-21 15:35 | Outpatient (CLI) | payer MEDICARE, SELFPAY ==
[2023-05-21 15:50] LABS: Basophils Percent Auto 0.5 % (0.2-1.2); Eosinophils Absolute Auto 0.3 K/mm3 (0-0.3); Eosinophils Percent Auto 3.7 % (0-4.4); Hematocrit 42.9 % (42.0-52.0); Hemoglobin 14.5 g/dL (14.0-18.0); Immature Granulocyte Absolute 0.03 K/mm3 (0.00-0.031); Immature Granulocyte Percent A 0.4 % (0-0.5); Lymphocytes Absolute Auto 2.33 K/mm3 (0.9-3.2); Lymphocytes Percent Auto 27.2 % (18.3-44.2); Mean Corpuscular HGB Conc 33.8 g/dl (32-36); Mean Corpuscular Hemoglobin 29.1 pg (26-34); Mean Platelet Volume 8.7 fl (7.4-10.4); Monocytes Absolute Auto 0.5 K/mm3 (0.1-0.6); Monocytes Percent Auto 6.3 % (2.6-8.5); Neutrophils Absolute Auto 5.3 K/mm3 (1.3-6.7); Neutrophils Percent Auto 61.9 % (45.5-73.1); Platelet Count Result 301 k/mm3 (150-375); Red Blood Count 4.99 M/mm3 (4.6-6.20); Red Cell Distribution Width 12.7 % (11.5-14.5); White Blood Count 8.6 K/mm3 (4.5-10.0)
[2023-05-21 16:32] LABS: Alanine Aminotransferase 38 U/L (6-50); Albumin Level 4.3 g/dL (3.5-5.1); Alkaline Phosphatase 92 U/L (38-126); Anion Gap 9 mmol/L (8-16); Aspartate Amino Transferase 33 U/L (17-59); Bilirubin,Total 0.4 mg/dL (0.2-1.3); Blood Urea Nitrogen 14 mg/dL (9-20); Calcium 9.8 mg/dL (8.4-10.2); Carbon Dioxide 30 mmol/L (22-30); Chloride 99 mmol/L (98-107); Estimated Glomerular Filt Rate 60; Glucose 177 mg/dL (65-110); Potassium 4.1 mmol/L (3.4-5.0); Sodium 138 mmol/L (137-145)
[2023-05-21 17:05] LABS: Carcinoembryonic Antigen 1.1 ng/mL (0.0-3.0)
== END 2023-05-21 15:36 | disposition home or self-care (01) ==
PROVIDERS: PCP Family Medicine; Visit Provider Internal Medicine Hematology & Oncology
DX: C18.2 Malignant neoplasm of ascending colon (principal)
CPT/HCPCS: 36415; 80053; 82378; 85025

== ENCOUNTER 2023-05-31 06:39 | Outpatient (CLI) | payer MEDICARE, SELFPAY ==
--- NOTE | ~2023-05-31 | CT_ITS ---
EXAMINATION: CT abdomen pelvis w con DATE: 05/31/2023 07:30 INDICATION: Malignant neoplasm of the ascending colon TECHNIQUE: Computed tomography (CT) of the abdomen and pelvis was performed with 100 mL Omnipaque-350 intravenous contrast. Automated exposure control and iterative reconstruction technique were employe d. The dose-length product was 491.18 mGy-cm. COMPARISON: 05/26/2022 and 05/24/2020 FINDINGS: Chronic 5 mm likely noncalcified granuloma at the anterobasilar left lower lobe. Heart size is normal . No pericardial or pleural effusion. Small sliding-type hiatal hernia. Liver, gallbladder, spleen, p ancreas, bilateral adrenal glands and right kidney are normal. There are couple T2-3 millimeter stone s at a lower pole calyx of the left kidney. Postoperative change of prior right hemicolectomy with il eocolic anastomosis in the right abdomen. No dilated bowel to suggest obstruction. Tiny fat-containin g umbilical hernia. There are small bilateral fat-containing inguinal hernias with change of a prior left inguinal hernia repair. Bladder is normal. No free intraperitoneal gas or fluid. No pathological ly enlarged abdominal or pelvic lymphadenopathy. Mild S-shaped scoliosis of the lumbar and lower thor acic spine with moderate spondylosis. IMPRESSION: 1. Status post right hemicolectomy with ileocolic anastomosis for reported malignant neoplasm of the ascending colon. No evident recurrent or metastatic disease. 2. Small sliding-type hiatal hernia. 3. Small bilateral fat-containing inguinal hernias which change of prior left inguinal hernia repair. 4. Couple nonobstructing 2-3 mm left renal stones. Reviewed, dictated and finalized at location A. ER BAILER OPERATOR IMPRESSION: 1. Status post right hemicolectomy with ileocolic anastomosis for reported suraj gnant neoplasm of the ascending colon. No evident recurrent or metastatic disea se. 2. Small sliding-type hiatal hernia. 3. Small bilateral fat-containing inguinal hernias which change of prior left i nguinal hernia repair. 4. Couple nonobstructing 2-3 mm left renal stones.
== END 2023-05-31 06:40 | disposition home or self-care (01) ==
LOC: ANHIMG 06:41
PROVIDERS: PCP Family Medicine; Visit Provider Internal Medicine Hematology & Oncology
DX: C18.2 Malignant neoplasm of ascending colon (principal); K44.9 Diaphragmatic hernia without obstruction or gangrene; N20.0 Calculus of kidney; Z98.0 Intestinal bypass and anastomosis status; Z90.49 Acquired absence of other specified parts of digestive tract
CPT/HCPCS: 74177; Q9967

== ENCOUNTER 2023-11-10 08:50 | Outpatient (CLI) | payer MEDICARE, SELFPAY ==
[2023-11-10 09:46] LABS: Hematocrit 46.1 % (42.0-52.0); Mean Corpuscular HGB Conc 32.5 g/dl (32-36); Mean Corpuscular Hemoglobin 28.9 pg (26-34); Mean Corpuscular Volume 88.8 fl (80-100); Mean Platelet Volume 9.2 fl (7.4-10.4); Platelet Count Result 280 k/mm3 (150-375); Red Blood Count 5.19 M/mm3 (4.6-6.20); Red Cell Distribution Width 13.3 % (11.5-14.5)
[2023-11-10 09:51] LABS: Alanine Aminotransferase 19 U/L (6-50); Albumin Level 4.3 g/dL (3.5-5.1); Alkaline Phosphatase 78 U/L (38-126); Anion Gap 8 mmol/L (4-12); Aspartate Amino Transferase 24 U/L (17-59); Bilirubin,Total 0.6 mg/dL (0.2-1.3); Blood Urea Nitrogen 13 mg/dL (9-20); Calcium 8.8 mg/dL (8.4-10.2); Carbon Dioxide 28 mmol/L (22-30); Chloride 103 mmol/L (98-107); Cholesterol 197 mg/dL (0-200); Estimated Glomerular Filt Rate > 60; Glucose 131 mg/dL (65-110); HDL Direct 43 mg/dL; Potassium 4.4 mmol/L (3.4-5.0); Sodium 139 mmol/L (137-145); Triglycerides 122 mg/dL (<150)
[2023-11-10 10:02] LABS: LDL Cholesterol Direct 134 mg/dL
[2023-11-10 10:14] LABS: MALB Creatinine Ratio 30.3 mg/g (0-30); Microalbumin Urine Random 31.5 mg/L (0-16.7)
[2023-11-10 10:20] LABS: Prostate Specific Antigen 2.4 ng/mL (< OR = 4.0)
[2023-11-10 10:29] LABS: Free T4 Free Thyroxine 1.26 ng/mL (0.78-2.19)
[2023-11-10 10:35] LABS: Hemoglobin A1C 6.6 % (<5.7)
== END 2023-11-10 08:51 | disposition home or self-care (01) ==
PROVIDERS: PCP Family Medicine; Visit Provider Family Medicine
DX: Z12.5 Encounter for screening for malignant neoplasm of prostate (principal); E11.65 Type 2 diabetes mellitus with hyperglycemia; I10 Essential (primary) hypertension; E03.9 Hypothyroidism, unspecified; Z13.220 Encounter for screening for lipoid disorders
CPT/HCPCS: 36415; 80048; 80061; 80076; 82043; 83036; 84153; 84439; 84443; 85027; G0103

== ENCOUNTER 2024-11-24 09:14 | Outpatient (CLI) | payer MEDICARE, SELFPAY ==
--- OUTSIDE RECORDS SUMMARY | 2024-11-24 09:17 | XMS_ITS | Clinical Summary ---
Author Organization [facility] Address [address] [place] [address] Care Team Providers Care Marketing Reporting Analyst Name Role Phone Gee Garcia MD Primary Care Provider [phone] Allergies No known active allergies Medications amLODIPine (NORVASC) 5 mg tablet 05/11/2022 Active lisinopriL (PRINIVIL) 10 mg tablet 03/24/2022 Active metFORMIN (GLUCOPHAGE) 500 mg tablet Active levothyroxine 88 mcg tablet Take 88 mcg by mouth daily. 11/09/2022 Active Active Problems Problem Noted Date Diagnosed Date Neuropathy due to chemotherapeutic drug 10/19/19 19 Iron deficiency anemia 05/31/2018 Malignant neoplasm of ascending colon 05/12/2018 Encounters Date Type Department Care Team Description 09/26/2024 External Device Data ST[facility] ABSTRACTION Provider, Abstract from Last 3 Months Family History Medical History Relation Name Comments Heart Disease Sister Relation Name Status Comments Brother 1 Alive Brother 2 Alive Brother 3 Alive Brother 4 Brother 5 Brother 6 Father Mother Sister Alive Social History Tobacco Use Types Packs/Day Years Used Date Smoking Tobacco: Never Smokeless Tobacco: Never Tobacco Cessation:Counseling Given: Not Answered Alcohol Use Standard Drinks/Week Comments Yes 0 (1 standard drink = 0.6 oz pur e alcohol) Sex and Gender Information Value Date Recorded Sex Assigned at Not on file Legal Sex Male 10:26 PM CDT Gender Identity Not on file Sexual Orientation Not on file Last Filed Vital Signs Vital Sign Reading Time Taken Comments Blood Pressure 142/92 05/24/2024 9:45 AM MIS DIRECTOR Pulse 83 05/24/2024 9:42 AM MIS DIRECTOR Temperature 36.3 C (97.3 F) 05/24/2024 9:42 AM MIS DIRECTOR Respiratory Rate 16 05/24/2024 9:42 AM MIS DIRECTOR Oxygen Saturation 90% 05/24/2024 9:42 AM MIS DIRECTOR Inhaled Oxygen Concentration - - Weight 85.4 kg (188 lb 4.8 oz) 05/24/2024 9:42 A M MIS DIRECTOR Height 182.9 cm (6') 11/14/2021 11:42 AM CDT Body Mass Index 25.54 11/14/2021 11:42 AM CDT Plan of Treatment Upcoming Encounters Date Type Department Care Team (Late st Contact Info) Description 05/24/2025 10:00 AM MIS DIRECTOR Office Visit [facility] Oncology and Hematology - [place] [address] [facility] [facility] [address] [place] [address] Davy Weiss MD [address] [facility] [place] [address] Health Maintenance Due Date Last Done Comments Pre-Diabetes and Diabetes Screening 1955 DTAP/TDAP/TD VACCINES (1 - Tdap) 07/20/1974 PNEUMOCOCCAL VACCINE 50+ YEARS (1 of 2 - PCV) 07/20/18 75 ZOSTER VACCINE (1 of 2) 07/20/1974 INFLUENZA VACCINE (#1) 2024 RSV VACCINE (60+ or ) (1 - 1-dose 75+ series) 07/20/2030 Insurance Care Teams Marketing Reporting Analyst Relationship Specialty Start Date End Date Gee Garcia MD [address] [place] [address] PCP - General Family Practice 05/12/18
[2024-11-24 09:31] LABS: Hematocrit 41.7 % (42.0-52.0); Hemoglobin 14.2 g/dL (14.0-18.0); Mean Corpuscular HGB Conc 34.1 g/dl (32-36); Mean Corpuscular Hemoglobin 29.6 pg (26-34); Mean Corpuscular Volume 87.1 fl (80-100); Platelet Count Result 308 k/mm3 (150-375); Red Blood Count 4.79 M/mm3 (4.6-6.20); White Blood Count 6.9 K/mm3 (4.5-10.0)
[2024-11-24 14:17] LABS: Anion Gap 11 mmol/L (4-12); Blood Urea Nitrogen 13 mg/dL (9-20); Calcium 9.4 mg/dL (8.4-10.2); Carbon Dioxide 26 mmol/L (22-30); Chloride 101 mmol/L (98-107); Estimated Glomerular Filt Rate 54; Glucose 151 mg/dL (65-110); Potassium 4.1 mmol/L (3.4-5.0); Sodium 138 mmol/L (137-145)
[2024-11-24 14:32] LABS: Free T4 Free Thyroxine 1.47 ng/dL (0.78-2.19)
[2024-11-24 14:34] LABS: Hemoglobin A1C 7.0 % (<5.7)
[2024-11-24 14:43] LABS: MALB Creatinine Ratio 16.9 mg/g (0-30)
[2024-11-24 14:49] LABS: Prostate Specific Antigen 2.4 ng/mL (< OR = 4.0); Thyroid Stimulating Hormone 2.750 uIU/mL (0.465-4.680)
== END 2024-11-24 09:15 | disposition home or self-care (01) ==
PROVIDERS: PCP Family Medicine; Visit Provider Family Medicine
DX: E03.9 Hypothyroidism, unspecified (principal); E11.29 Type 2 diabetes mellitus with other diabetic kidney complication; R80.9 Proteinuria, unspecified; Z12.5 Encounter for screening for malignant neoplasm of prostate; I10 Essential (primary) hypertension
CPT/HCPCS: 36415; 80048; 82043; 83036; 84153; 84439; 84443; 85027; G0103